=== PATIENT | female | born 1975 | race Caucasian/White ===

== ENCOUNTER 2017-07-06 19:21 | Emergency (ER) | payer BC, OTHER ==
[2017-07-06] MEDS ORDERED: Sodium Chloride 0.9% 1,000 ML IV ONE (19:40)
[2017-07-06] MEDS ORDERED: Ondansetron 4 MG/2 ML SDV IVPUSH ONE (19:40)
[2017-07-06] MEDS ORDERED: Ketorolac 30 MG/ML SDV IVPUSH ONE (19:40)
[2017-07-06] MEDS ORDERED: fentaNYL 100 MCG/2 ML SDV IVPUSH ONE (19:42)
--- NOTE | 2017-07-06 20:09 | EDM.PDOC ---
ED HPI GENERAL MEDICAL PROBLEM - General Chief Complaint: Back Pain or Injury Stated Complaint: BACK PAIN Time Seen by Provider: 07/06/17 19:58 Source of Information: Reports: Patient History Limitations: Reports: No Limitations - History of Present Illness INITIAL COMMENTS - FREE TEXT/NARRATIVE: History of present illness: [42-year-old female presenting with complaints of acute lower back pain. She denies any trauma and indicates she has a history of her lower back and hips going out. Patient indicates when these times happened she goes to a chiropractor and he resolves it but this is worse than she has had before.] Review of systems: As per history of present illness and below otherwise all systems reviewed and negative. Past medical history: As per history of present illness and as reviewed below otherwise noncontributory. Surgical history: As per history of present illness and as reviewed below otherwise noncontributory. Social history: No reported history of drug or alcohol abuse. Family history: As per history of present illness and as reviewed below otherwise noncontributory. Physical exam: HEENT: Atraumatic, normocephalic, pupils reactive, negative for conjunctival pallor or scleral icterus, mucous membranes moist, throat clear, neck supple, nontender, trachea midline. Lungs: Clear to auscultation, breath sounds equal bilaterally, chest nontender. Heart: S1S2, regular, negative for clicks, rubs, or JVD. Abdomen: Soft, nondistended, nontender. Negative for masses or hepatosplenomegaly. Negative for costovertebral tenderness. Pelvis: Stable nontender. Genitourinary: Deferred. Rectal: Deferred. Extremities: Atraumatic, negative for cords or calf pain. Neurovascular unremarkable. Neuro: Awake, alert, oriented. Diagnostics: [] Therapeutics: [] Impression: [] Plan: [] Definitive disposition and diagnosis as appropriate pending reevaluation and review of above. 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: 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 History: Reports: Back Pain, Chronic Psychiatric History: Reports: Depression - Infectious Disease History Infectious Disease History: Reports: Chicken Pox, Measles - Past Surgical History GI Surgical History: Reports: Cholecystectomy Social & Family History - Family History Family Medical History: Noncontributory - Tobacco Use Smoking Status *Q: Never Smoker Second Hand Smoke Exposure: No - Caffeine Use Caffeine Use: Reports: Soda Caffeine Use Comment: 4drinks/day - Recreational Drug Use Recreational Drug Use: No ED ROS GENERAL - Review of Systems Review Of Systems: See Below (See history of present illness) ED EXAM,LOWER BACK PAIN/INJURY - Physical Exam Exam: See Below (See history of present illness) Course - Vital Signs Last Recorded V/S: Last Vital Signs Temp 35.9 C 07/06/17 19:26 Pulse 75 07/06/17 23:29 Resp 18 07/06/17 23:29 BP 106/55 L 07/06/17 23:29 Pulse Ox 97 07/06/17 23:29 - Orders/Labs/Meds Orders: Active Orders 24 hr Category Date Time Status Lumbar Spine 2 or 3V [CR] Stat Exams 07/06/17 19:42 Taken Sacrum Coccyx Min 2V [CR] Stat Exams 07/06/17 19:42 Taken Meds: Medications Discontinued Medications Generic Name Dose Route Start Last Admin Trade Name Josselyn PRN Reason Stop Dose Admin Fentanyl 50 mcg 07/06/17 19:42 07/06/17 20:00 Sublimaze IVPUSH 07/06/17 19:43 50 mcg ONETIME ONE Administration Sodium Chloride 1,000 mls @ 999 mls/hr 07/06/17 19:40 07/06/17 19:57 Normal Saline IV 07/06/17 20:40 999 mls/hr STAT ONE Administration Ketorolac Tromethamine 30 mg 07/06/17 19:40 07/06/17 19:58 Toradol IVPUSH 07/06/17 19:41 30 mg ONETIME ONE Administration Ondansetron HCl 4 mg 07/06/17 19:40 07/06/17 19:58 Zofran IVPUSH 07/06/17 19:41 4 mg ONETIME ONE Administration Departure - Departure Time of Disposition: 23:20 Disposition: Home, Self-Care 01 Condition: Good Clinical Impression: Back pain - Discharge Information Instructions: Back Pain, Adult, [id number] Referrals: Fabián Love MD [Primary Care Provider] - Forms: ED Department Discharge - My Orders Last 24 Hours: My Active Orders 07/06/17 19:42 Lumbar Spine 2 or 3V [CR] Stat Sacrum Coccyx Min 2V [CR] Stat - Assessment/Plan Last 24 Hours: My Active Orders 07/06/17 19:42 Lumbar Spine 2 or 3V [CR] Stat Sacrum Coccyx Min 2V [CR] Stat
[2017-07-07 01:13] VITALS: BP 106/55
--- NOTE | 2017-07-08 15:24 | CR ---
EXAM DATE: 07/06/17 PATIENT'S AGE: 42 Patient: AGNIESZKA DIAZ Facility: [place], [place] Site . Site : 1975 Study: XRay Spine Lumbar [id number]/19/2017 9:09:56 PM Ordering Physician: Doctor Burgos Final Report: Lumbar spine 3 VIEWS INDICATION: Back pain. IMPRESSION: There is a mild broad-based curvature of the lumbar spine convex to the right. Disk spaces appear normal. No fractures. Metallic clips in the right upper quadrant from previous gallbladder surgery. Dictated by Octavio Burns MD @ Jul 06 2017 9:17PM (Electronic Signature) Report Signed by Proxy. JORGE ALBERTO
--- NOTE | 2017-07-08 15:25 | CR ---
EXAM DATE: 07/06/17 PATIENT'S AGE: 42 Patient: AGNIESZKA DIAZ Facility: [place], [place] Site . Site : 1975 Study: XRay Spine [id number]/19/2017 9:10:23 PM Ordering Physician: Doctor Burgos Final Report: INDICATION: Pain in the sacrum. Technique: Three view sacrum and coccyx. Impression: No fractures. Normal alignment. Normal sacrum and coccyx. Incidental normal variation very distal sacral spina bifida occulta. Dictated by Octavio Burns MD @ Jul 06 2017 9:19PM (Electronic Signature) Report Signed by Proxy. JORGE ALBERTO
== END 2017-07-06 22:47 | disposition home or self-care (01) ==
LOC: MW.ED 19:21
DX: M54.5 Low back pain (principal); Z90.49 Acquired absence of other specified parts of digestive tract
CPT/HCPCS: 72100; 72220; 96361; 96374; 96375; 99283; J1885; J2405; J3010; J7040; 99282

== ENCOUNTER 2018-05-13 08:18 | Day surgery (SDC) | payer BC ==
[~2018-05-13 08:18] MED LIST: Lactated Ringers 1,000 ML IV SCH; Sodium Chloride 0.9% 10 ML Syringe FLUSH PRN; Sodium Chloride 0.9% 2.5 ML Syringe FLUSH PRN
[2018-05-13] MEDS ORDERED: Lactated Ringers 1,000 ML IV SCH (08:30)
[2018-05-13] MEDS ORDERED: fentaNYL 100 MCG/2 ML SDV IVPUSH PRN (08:55)
--- NOTE | 2018-05-13 09:04 | PCM.PREANE ---
Preanesthetic Assessment - Anesthesia/Transfusion/Family Hx Anesthesia History: Prior Anesthesia Without Reaction Transfusion History: No Prior Transfusion(s) - Physical Assessment Height: 1.75 m Weight: 111.584 kg - Lab Values: Laboratory Last Values WBC 7.27 K/uL (4.0-11.0) 05/13/18 08:39 RBC 4.44 M/uL (4.30-5.90) 05/13/18 08:39 Hgb 12.2 g/dL (12.0-16.0) 05/13/18 08:39 Hct 35.8 % (36.0-46.0) L 05/13/18 08:39 MCV 80.6 fL (80.0-98.0) 05/13/18 08:39 MCH 27.5 pg (27.0-32.0) 05/13/18 08:39 MCHC 34.1 g/dL (31.0-37.0) 05/13/18 08:39 RDW Std Deviation 39.7 fl (28.0-62.0) 05/13/18 08:39 RDW Coeff of Leann 14 % (11.0-15.0) 05/13/18 08:39 Plt Count 216 K/uL (150-400) 05/13/18 08:39 MPV 9.30 fL (7.40-12.00) 05/13/18 08:39 Nucleated RBC % 0.0 /100WBC 05/13/18 08:39 Nucleated RBCs # 0 K/uL 05/13/18 08:39 - Allergies Allergies/Adverse Reactions: Allergies Allergy/AdvReac Type Severity Reaction Status Date / Time No Known Allergies Allergy Verified 05/08/18 11:29 PreAnesthesia Questionnaire - Past Health History Medical/Surgical History: Denies Medical/Surgical History HEENT History: Reports: Other (See Below) Other HEENT History: wears glasses/contacts Gastrointestinal History: Reports: None 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: 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 History: Reports: Fracture Other 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 History: hx of wrist and ankle (no hardware) Neurological History: Reports: Headaches, Chronic Psychiatric History: Reports: Depression Endocrine/Metabolic History: Reports: Obesity/BMI 30+ Hematologic History: Reports: Anemia - Infectious Disease History Infectious Disease History: Reports: Chicken Pox, Measles - Past Surgical History HEENT Surgical History: Reports: Oral Surgery Other HEENT Surgeries/Procedures: wisdom teeth GI Surgical History: Reports: Cholecystectomy, Colonoscopy, EGD Female Surgical History: Reports: Cervical Cryotherapy - SUBSTANCE USE Smoking Status *Q: Never Smoker Recreational Drug Use History: No - HOME MEDS Home Medications: Home Meds Zolpidem [Ambien] 2.5 mg PO BEDTIME PRN 07/06/17 [History] Ascorbic Acid [Vitamin C] 2 tab CHEW DAILY 05/08/18 [History] Citalopram [Citalopram HBr] 20 mg PO DAILY 05/08/18 [History] Ibuprofen [Advil] 800 mg PO BEDTIME 05/08/18 [History] Iron 54 mg PO DAILY 05/08/18 [History] Tranexamic Acid [Lysteda] 2 tab PO TID PRN 05/08/18 [History] - CURRENT (IN HOUSE) MEDS Current Meds: Current Medications Lactated Ringer's (Ringers, Lactated) 1,000 mls @ 125 mls/hr IV ASDIRECTED [facility] Sodium Chloride (Saline Flush) 10 ml FLUSH ASDIRECTED PRN PRN Reason: Keep Vein Open Sodium Chloride (Saline Flush) 2.5 ml FLUSH ASDIRECTED PRN PRN Reason: Keep Vein Open Discontinued Medications Lactated Ringer's (Ringers, Lactated) 1,000 mls @ 125 mls/hr IV ASDIRECTED [facility]
--- NOTE | 2018-05-13 09:08 | PCM.PREANE ---
Preanesthetic Assessment - Anesthesia/Transfusion/Family Hx Anesthesia History: Prior Anesthesia Without Reaction Family History of Anesthesia Reaction: No Transfusion History: No Prior Transfusion(s) Intubation History: Unknown - Review of Systems General: No Symptoms Pulmonary: No Symptoms Cardiovascular: No Symptoms Gastrointestinal: No Symptoms Neurological: No Symptoms Other: Reports: None - Physical Assessment Height: 1.75 m Weight: 111.584 kg ASA Class: 2 Mental Status: Alert & Oriented x3 Airway Class: Mallampati = 2 Dentition: Reports: Normal Dentition Thyro-Mental Finger Breadths: 2 Mouth Opening Finger Breadths: 3 ROM/Head Extension: Full Lungs: Clear to Auscultation, Normal Respiratory Effort Cardiovascular: Regular Rate, Regular Rhythm - Lab Values: Laboratory Last Values WBC 7.27 K/uL (4.0-11.0) 05/13/18 08:39 RBC 4.44 M/uL (4.30-5.90) 05/13/18 08:39 Hgb 12.2 g/dL (12.0-16.0) 05/13/18 08:39 Hct 35.8 % (36.0-46.0) L 05/13/18 08:39 MCV 80.6 fL (80.0-98.0) 05/13/18 08:39 MCH 27.5 pg (27.0-32.0) 05/13/18 08:39 MCHC 34.1 g/dL (31.0-37.0) 05/13/18 08:39 RDW Std Deviation 39.7 fl (28.0-62.0) 05/13/18 08:39 RDW Coeff of Leann 14 % (11.0-15.0) 05/13/18 08:39 Plt Count 216 K/uL (150-400) 05/13/18 08:39 MPV 9.30 fL (7.40-12.00) 05/13/18 08:39 Nucleated RBC % 0.0 /100WBC 05/13/18 08:39 Nucleated RBCs # 0 K/uL 05/13/18 08:39 - Allergies Allergies/Adverse Reactions: Allergies Allergy/AdvReac Type Severity Reaction Status Date / Time No Known Allergies Allergy Verified 05/08/18 11:29 - Blood Blood Available: No - Anesthesia Plan Pre-Op Medication Ordered: None - Acknowledgements Anesthesia Type Planned: General Anesthesia Pt an Appropriate Candidate for the Planned Anesthesia: Yes Alternatives and Risks of Anesthesia Discussed w Pt/Guardian: Yes Pt/Guardian Understands and Agrees with Anesthesia Plan: Yes PreAnesthesia Questionnaire - Past Health History Medical/Surgical History: Denies Medical/Surgical History HEENT History: Reports: Other (See Below) Other HEENT History: wears glasses/contacts 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: Reports: 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 Other 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 History: hx of wrist and ankle (no hardware) Neurological History: Reports: Headaches, Chronic Psychiatric History: Reports: Depression, Suicide Attempt Endocrine/Metabolic History: Reports: Obesity/BMI 30+ Hematologic History: Reports: Anemia - Infectious Disease History Infectious Disease History: Reports: Chicken Pox, Measles - Past Surgical History HEENT Surgical History: Reports: Oral Surgery Other HEENT Surgeries/Procedures: wisdom teeth GI Surgical History: Reports: Cholecystectomy, Colonoscopy, EGD Female Surgical History: Reports: Cervical Cryotherapy - SUBSTANCE USE Smoking Status *Q: Never Smoker Recreational Drug Use History: No - HOME MEDS Home Medications: Home Meds Zolpidem [Ambien] 2.5 mg PO BEDTIME PRN 07/06/17 [History] Ascorbic Acid [Vitamin C] 2 tab CHEW DAILY 05/08/18 [History] Citalopram [Citalopram HBr] 20 mg PO DAILY 05/08/18 [History] Ibuprofen [Advil] 800 mg PO BEDTIME 05/08/18 [History] Iron 54 mg PO DAILY 05/08/18 [History] Tranexamic Acid [Lysteda] 2 tab PO TID PRN 05/08/18 [History] - CURRENT (IN HOUSE) MEDS Current Meds: Current Medications Fentanyl (Sublimaze) 50 mcg IVPUSH .Q5MIN PRN PRN Reason: Pain Lactated Ringer's (Ringers, Lactated) 1,000 mls @ 125 mls/hr IV ASDIRECTED [facility] Sodium Chloride (Saline Flush) 10 ml FLUSH ASDIRECTED PRN PRN Reason: Keep Vein Open Sodium Chloride (Saline Flush) 2.5 ml FLUSH ASDIRECTED PRN PRN Reason: Keep Vein Open Discontinued Medications Lactated Ringer's (Ringers, Lactated) 1,000 mls @ 125 mls/hr IV ASDIRECTED [facility]
[2018-05-13] MEDS ORDERED: fentaNYL 250 MCG/5 ML SDV ONE (10:14)
[2018-05-13] MEDS ORDERED: Ondansetron 4 MG/2 ML SDV ONE (10:14)
[2018-05-13] MEDS ORDERED: Propofol 200 MG/20 ML SDV ONE (10:14)
[2018-05-13] MEDS ORDERED: Lidocaine 2% 5 ML SDV ONE (10:14)
[2018-05-13] MEDS ORDERED: Midazolam 1 MG/ML 2 ML SDV ONE (10:14)
[2018-05-13] MEDS ORDERED: Ketorolac 30 MG/ML SDV ONE (11:30)
--- NOTE | 2018-05-13 12:03 | PCM.OPNOTE ---
- General Post-Op/Procedure Note Date of Surgery/Procedure: 05/13/18 Operative Procedure(s): Operative hysteroscopy with polypectomy. Fractional D&C Findings: Thickened heterogenous endometrium with 2 polypoid lesions Pre Op Diagnosis: Menometrorrhagia Post-Op Diagnosis: Same Anesthesia Technique: General LMA Primary Surgeon: Starla Villatoro Pathology: endometrial curretings, polyps Fluid Replacement, Intraop: 1,000 EBL in mLs: 50 Complications: none known Condition: Good Free Text/Narrative:: Dictation [id number]
--- NOTE | 2018-05-13 12:36 | PCM.POSTAN ---
POST ANESTHESIA ASSESSMENT - MENTAL STATUS Mental Status: Alert, Oriented - RESPIRATORY Respiratory Status: Respiratory Rate WNL, Airway Patent, O2 Saturation Stable - CARDIOVASCULAR CV Status: Pulse Rate WNL, Blood Pressure Stable - GASTROINTESTINAL GI Status: No Symptoms - PAIN Pain Score: 0 - POST OP HYDRATION Hydration Status: Adequate & Stable
--- NOTE | 2018-05-13 13:56 | PCM48HPAN ---
Post Anesthesia Note - EVALUATION WITHIN 48HRS OF ANESTHETIC Vital Signs in Normal Range: Yes Patient Participated in Evaluation: Yes Respiratory Function Stable: Yes Airway Patent: Yes Cardiovascular Function Stable: Yes Hydration Status Stable: Yes Pain Control Satisfactory: Yes Nausea and Vomiting Control Satisfactory: Yes Mental Status Recovered: Yes Resp Rate: 15
[2018-05-13 14:29] VITALS: BP 106/56
--- NOTE | 2018-05-14 08:32 | OR ---
SURGEON: Starla Villatoro M.D. DATE OF PROCEDURE: 05/13/2018 PREOPERATIVE DIAGNOSIS: Menometrorrhagia. POSTOPERATIVE DIAGNOSIS: Menometrorrhagia. PROCEDURES: Operative hysteroscopy with polypectomy, fractional D and C. ANESTHESIA: General LMA. ESTIMATED BLOOD LOSS: 50 mL. FLUIDS: 1000 mL of crystalloid. COMPLICATIONS: None. FINDINGS: Heterogeneous thickened endometrium with two polypoid lesion along the lower uterine segment. DISPOSITION: The patient to PACU, stable. SPECIMEN: Pathology. PROCEDURE IN DETAIL: Yasir is a 42-year-old female, who has had ongoing difficulties with menometrorrhagia. Ultrasound recently revealed a significantly thickened endometrium. She had previously undergone a hysterogram; however, due to a fairly multiparous cervical os, she has difficulty retaining the saline, making visualization difficult, despite using maneuvers to try to minimize the os' diameter. Therefore, after discussion, we have opted to proceed with further evaluation with hysteroscopy. Risks of the procedure have been discussed and proper consent obtained. The patient was taken to the operating room where she underwent general LMA, was placed in modified dorsal position, prepped and draped in the usual sterile fashion. The bladder was drained. SCDs to lower extremities. A time-out was performed. Speculum was introduced in the vagina. Cervix was visualized. Anterior lip was grasped with an Allis clamp. The os was already easily dilated. A hysteroscope with MyoSure device was gently introduced in the endometrial cavity, using normal saline as distention media. Once again, had a fair amount of fluid returning from the multiparous cervical os. Using Allis clamps, was able to place these on either side of the hysteroscope at 3 and 9 o'clock. This helped to minimize return of the fluid. The endometrial cavity was now able to be visualize, the right ostia followed by left ostia were visualized. The endometrium was significantly thickened and heterogeneous. There were two polypoid lesions noted along the posterior mid lower uterine segment region along the right side. Therefore, MyoSure device was introduced. Polyps were resected. The thicker portions of endometrium were also resected using the MyoSure device. This was sent to Pathology for analysis. Once the majority of the endometrium had been thinned to a more confluent consistency, the hysteroscope was removed. Gentle curettage was now performed to the remainder of the endometrial cavity. A fair amount of tissue still returned at this juncture, and all will be sent to Pathology for further analysis. The patient tolerated the procedure well overall. All instruments removed from the vagina. Hemostasis was evident. The patient to PACU in stable condition. Specimens to pathology. ARMANDO / MERRY /[id number]
== END 2018-05-13 13:25 | disposition home or self-care (01) ==
LOC: MW.SDS 08:18
PROVIDERS: ATTEND Obstetrics & Gynecology
PROC: 0UB98ZX Excision of Uterus, Via Natural or Artificial Opening Endoscopic, Diagnostic (ICD-10-PCS; principal; 2018-05-13)
PROC: 0UDB8ZX Extraction of Endometrium, Via Natural or Artificial Opening Endoscopic, Diagnostic (ICD-10-PCS; 2018-05-13)
DX: N84.0 Polyp of corpus uteri (principal); N92.1 Excessive and frequent menstruation with irregular cycle; F32.9 Major depressive disorder, single episode, unspecified; Z79.899 Other long term (current) drug therapy
CPT/HCPCS: 36415; 58558; 84703; 85027; J1885; J2250; J2405; J3010; J7120; 88305; J2704

== ENCOUNTER 2022-08-22 08:00 | Emergency (ER) | payer BC ==
[2022-08-22] MEDS ORDERED: Magnesium Sulfate/Water 50 ML IV ONE (10:35)
[2022-08-22] MEDS ORDERED: Sodium Chloride 0.9% 1,000 ML IV ONE (10:35)
== END 2022-08-22 15:00 | disposition home or self-care (01) ==
LOC: MW.ED 08:00
DX: R07.89 Other chest pain (principal)
CPT/HCPCS: 71045; 96365; 99285; J3475; J7030

== ENCOUNTER 2023-04-26 06:23 | Day surgery (SDC) | payer BC ==
[~2023-04-26 06:23] MED LIST changes: -Sodium Chloride 0.9% 10 ML Syringe FLUSH PRN; -Sodium Chloride 0.9% 2.5 ML Syringe FLUSH PRN
[2023-04-26] MEDS ORDERED: Lidocaine 2% 5 ML SDV ONE (07:24)
[2023-04-26] MEDS ORDERED: Propofol 200 MG/20 ML SDV ONE ×3 (07:25→08:31)
[2023-04-26 09:09] VITALS: BP 93/50; PULSE 70
== END 2023-04-26 09:40 | disposition home or self-care (01) ==
LOC: MW.SDS 06:23
PROVIDERS: ATTEND Surgery
DX: D12.2 Benign neoplasm of ascending colon (principal); K63.5 Polyp of colon; K29.50 Unspecified chronic gastritis without bleeding; B96.81 Helicobacter pylori [H. pylori] as the cause of diseases classified elsewhere; K21.00 Gastro-esophageal reflux disease with esophagitis, without bleeding; K22.89 Other specified disease of esophagus; M54.9 Dorsalgia, unspecified; G89.29 Other chronic pain; F41.9 Anxiety disorder, unspecified; E78.5 Hyperlipidemia, unspecified; G47.00 Insomnia, unspecified; F32.9 Major depressive disorder, single episode, unspecified; E66.9 Obesity, unspecified; Z79.899 Other long term (current) drug therapy; Z90.49 Acquired absence of other specified parts of digestive tract; Z68.37 Body mass index [BMI] 37.0-37.9, adult
CPT/HCPCS: 43239; 45380; J2704; J7120; 00813; J3490

== ENCOUNTER 2024-10-23 14:32 | Emergency (ER) | payer BC ==
[2024-10-23 15:03] LABS: BASOPHILS ABSOLUTE AUTO 0.02 K/uL (0.00-0.20); BASOPHILS PERCENT AUTO 0.3 % (0.0-1.0); EOSINOPHILS ABSOLUTE AUTO 0.07 K/uL (0.00-0.45); IMMATURE GRAN ABSOLUTE AUTO 0.01 K/uL (0.00-0.05); IMMATURE GRAN PERCENT AUTO 0.1 % (0.0-0.4); LYMPHOCYTES ABSOLUTE AUTO 2.18 K/uL (1.00-4.80); LYMPHOCYTES PERCENT AUTO 30.1 % (24.0-44.0); MEAN CORPUSCULAR HEMOGLOBIN 27.9 pg (28.0-32.0); MEAN CORPUSCULAR VOLUME 79.8 fL (83.0-99.0); MEAN PLATELET VOLUME 9.2 fL (9.4-12.3); MONOCYTES ABSOLUTE AUTO 0.47 K/uL (0.00-0.80); MONOCYTES PERCENT AUTO 6.5 % (0.0-8.0); PLATELET COUNT,PLT 228 K/uL (150-400); RED BLOOD CELL COUNT 5.01 M/uL (4.10-5.30); WHITE BLOOD CELL COUNT,WBC 7.25 K/uL (3.9-11.3)
[2024-10-23 15:35] LABS: ALANINE AMINOTRANSFERASE,ALT 58 IU/L (14-63); ALBUMIN 3.8 g/dL (3.4-5.0); ALKALINE PHOSPHATASE 75 U/L (46-116); ASPARTATE AMNIOTRANSFERASE,AST 37 IU/L (15-37); BILIRUBIN TOTAL 0.5 mg/dL (0.2-1.0); BLOOD UREA NITROGEN,BUN 9 mg/dL (7.0-18.0); CALCIUM 9.2 mg/dL (8.5-10.1); CARBON DIOXIDE,CO2 24.4 mmol/L (21.0-32.0); CHLORIDE,CL 105 mmol/L (98-107); CREATININE 0.8 mg/dL (0.6-1.0); EST CRCL DRUG DOSING (CG) 85.81 mL/min; GLUCOSE RANDOM 114 mg/dL (74-106); POTASSIUM,K 4.1 mmol/L (3.5-5.1); PROTEIN TOTAL,TP 7.6 g/dL (6.4-8.2); SODIUM,NA 140 mmol/L (136-145)
[2024-10-23 15:39] LABS: ESTIMATED GFR 90 mL/min (>60)
[2024-10-23] MEDS: Lidocaine 4% 1 each Patch TOP ONE (16:18)
[2024-10-23 17:03] VITALS: BP 130/87; PULSE 87
== END 2024-10-23 17:03 | disposition home or self-care (01) ==
LOC: MW.ED 14:32
DX: R07.9 Chest pain, unspecified (principal); M79.602 Pain in left arm; R94.31 Abnormal electrocardiogram [ECG] [EKG]; E66.9 Obesity, unspecified; Z90.49 Acquired absence of other specified parts of digestive tract; Z88.8 Allergy status to other drugs, medicaments and biological substances; Z79.899 Other long term (current) drug therapy; Z68.38 Body mass index [BMI] 38.0-38.9, adult; Z75.8 Other problems related to medical facilities and other health care
CPT/HCPCS: 36415; 71046; 80053; 83735; 84484; 85025; 93005; 99285; A9270; 93010